=== PATIENT | male | born 1955 | race Caucasian/White ===

== ENCOUNTER 2019-04-27 20:00 | Emergency (ER) | payer BC ==
[2019-04-27] MEDS ORDERED: Morphine 2 MG/ML Syringe IVPUSH ONE (20:49)
[2019-04-27] MEDS ORDERED: Ondansetron 4 MG/2 ML SDV IVPUSH ONE (20:51)
[2019-04-27] MEDS ORDERED: Silver Sulfadiazine 1% Crm 50 GM Tube TOP ONE (20:55)
[2019-04-27] MEDS ORDERED: Sodium Chloride 0.9% 1,000 ML IV SCH (21:00)
--- NOTE | 2019-04-27 22:06 | CRLCT ---
Indication: Trauma Technique: Nonenhanced axial CT imaging through the thorax. Sagittal and coronal reconstructions are provided. Comparison: None Findings: Mild atelectatic changes are seen in the lung bases. There is no pulmonary consolidation, vascular congestion, pleural effusion, or pneumothorax. The heart is mildly prominent. Calcified coronary artery disease is present. The ascending aorta measures up to 4 cm in diameter, at the upper limits of normal. No mediastinal lymphadenopathy is identified, although assessment as limited by noncontrast technique. There are multilevel degenerative changes of the thoracic spine. No acute no acute displaced fractures demonstrated. No significant abnormalities demonstrated in the upper abdomen. Impression: No acute intrathoracic findings within the limitations of noncontrast technique. Please note that all CT scans at this facility use dose modulation, iterative reconstruction, and/or weight-based dosing when appropriate to reduce radiation dose to as low as reasonably achievable. Dictated by Alana Coates MD @ Apr 27 2019 9:58PM Signed by Dr. Alana Coates @ Apr 27 2019 10:05PM
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
== END 2019-04-27 23:25 | disposition home or self-care (01) ==
LOC: JP.ED 20:00
DX: S20.211A Contusion of right front wall of thorax, initial encounter (principal); S40.211A Abrasion of right shoulder, initial encounter; S50.811A Abrasion of right forearm, initial encounter; V11.0XXA Pedal cycle driver injured in collision with other pedal cycle in nontraffic accident, initial encounter; Y92.830 Public park as the place of occurrence of the external cause
CPT/HCPCS: 71250; 96361; 96374; 96375; 99284; A9270; J2270; J2405; J7030